=== PATIENT | male | born 1950 | race Caucasian/White ===

== ENCOUNTER 2017-03-06 09:17 | Emergency (ER) | payer OTHER ==
[~2017-03-06] VITALS: Ht 185.4 cm; Wt 99.0 kg
[~2017-03-06 09:17] MED LIST: ALEVE220 M2 PO; ASPIRIN325 MG PO; ASPIRIN81 M1 PO; CALTRATE 600 +1 EAC1 PO; CIPRO500 MG PO; COLACE100 MG PO; COUMADIN3 M1 PO; DAILY VITE1 EAC1 PO; DILANTIN100 MG PO; DILANTIN30 MG PO; DOCUSATE SODIU100 MG PO; ENDOCET 5-3251 EACH PO; FOLVITE1 MG PO; HUMIBID LA,MUC600 MG PO; K-DUR20 MEQ PO; KEPPRA500 MG PO; KEPPRA750 MG PO; LEVETIRACETAM750 MG PO; METAMUCIL FIBE1 EACH PO; MOTRIN600 MG PO; MULTIVITAMIN1 EAC1 PO; Oyst-Cal D, Oscal W/ PO; PERCOCET 5/31 TABLET PO; PHENYTOIN PO; SENOKOT S,PE1 TABLET PO; SEROQUEL200 MG PO; Skelaxin PO; THERAGRAN1 TABLET PO; TIROSINT100 MCG PO; TOPAMAX100 MG PO; TOPAMAX200 MG PO; TOPIRAMATE200 MG PO; VITAMIN C500 M1 PO; VITAMIN D2000 UNI1 PO; ZOCOR20 MG PO; Zocor PO
[2017-03-06 11:46] VITALS: BP 121/72
== END 2017-03-06 11:46 | disposition home or self-care (01) ==
LOC: EME 09:17
DX: M95.8 Other specified acquired deformities of musculoskeletal system (principal); S40.012A Contusion of left shoulder, initial encounter; W18.39XA Other fall on same level, initial encounter; Y92.000 Kitchen of unspecified non-institutional (private) residence as the place of occurrence of the external cause; M85.812 Other specified disorders of bone density and structure, left shoulder; I69.954 Hemiplegia and hemiparesis following unspecified cerebrovascular disease affecting left non-dominant side; E78.5 Hyperlipidemia, unspecified; Z79.82 Long term (current) use of aspirin
CPT/HCPCS: 73010; 73030; 99281; 99283